=== PATIENT | female | born 1975 | race Caucasian/White ===

== ENCOUNTER 2019-07-12 14:00 | Outpatient (CLI) | payer BC, SELFPAY ==
--- NOTE | 2019-07-12 14:08 | MM_ITS ---
WS: [id number] BILATERAL DIGITAL SCREENING MAMMOGRAPHY WITH CAD CLINICAL INFORMATION: SCREENING HISTORY: Screening mammogram. No current complaints. COMPARISON: TECHNIQUE: Bilateral CC and MLO views. FINDINGS: The breasts are composed of heterogeneous fibroglandular density tissue, which can limit the detectio n of small underlying mass lesions. Increasing asymmetric density lower inner quadrant right breast. Recommend spot compression views and ultrasound if persistent. Left breast is unchanged in appearance. MM/[id number] IMPRESSION: BI-RADS: 0-Incomplete: Need additional imaging evaluation FOLLOW UP: Need Additional Imaging
== END 2019-07-12 14:01 | disposition home or self-care (01) ==
PROVIDERS: Family Provider Family Medicine; PCP Family Medicine; Visit Provider Family Medicine
DX: Z12.31 Encounter for screening mammogram for malignant neoplasm of breast (principal)
CPT/HCPCS: 77067

== ENCOUNTER 2019-07-24 11:20 | Outpatient (CLI) | payer BC, SELFPAY ==
--- NOTE | 2019-07-24 11:24 | US_ITS ---
WS: [id number] RIGHT DIGITAL MAMMOGRAPHY WITH CAD CLINICAL INFORMATION: RT BREAST DENSITY COMPARISON: July 12, 2019 TECHNIQUE: 4 views of the right breast were obtained. FINDINGS: The right breast is composed of heterogeneous fibroglandular density tissue, which can limit the dete ction of small underlying mass lesions. Again seen is the asymmetric density lower inner quadrant right breast measuring 10 mm. This is parti ally compresses out on the spot compression views. Ultrasound is pending. ULTRASOUND BREAST RIGHT TECHNIQUE: Ultrasound right breast focused area of concern. CLINICAL INFORMATION: RT BREAST DENSITY COMPARISON: None. FINDINGS: Ultrasound right breast 3-6 clock position. No evidence of pathologic mass or lesion. No lesions to t arget for biopsy. Normal underlying breast tissue. No suspicious findings. Mammographic findings like ly due to overlapping breast tissue. US/US breast RT limited* [id number] IMPRESSION: BI-RADS: 2-Benign FOLLOW UP: 1 Year Follow-up Recommend return to annual screening mammography.
== END 2019-07-24 11:21 | disposition home or self-care (01) ==
LOC: RADSHAW 11:20
PROVIDERS: Family Provider Family Medicine; PCP Family Medicine; Visit Provider Family Medicine
DX: N63.14 Unspecified lump in the right breast, lower inner quadrant (principal)
CPT/HCPCS: 76642; 77065

== ENCOUNTER 2020-03-17 09:35 | Outpatient (RCR) | payer OTHER, SELFPAY | END 2020-03-25 23:59 | disposition home or self-care (01) | LOC: SOT 09:35 | PROVIDERS: PCP Family Medicine; Referring Provider Physical Medicine & Rehabilitation; Visit Provider Physical Medicine & Rehabilitation | DX: G56.03 Carpal tunnel syndrome, bilateral upper limbs (principal) | CPT/HCPCS: 97035; 97110; 97140; 97166; L3807 ==

== ENCOUNTER 2020-03-26 06:00 | Outpatient (RCR) | payer OTHER, SELFPAY | END 2020-04-21 15:47 | disposition home or self-care (01) | LOC: SOT 06:00 | PROVIDERS: PCP Family Medicine; Referring Provider Physical Medicine & Rehabilitation; Visit Provider Physical Medicine & Rehabilitation | DX: G56.03 Carpal tunnel syndrome, bilateral upper limbs (principal) | CPT/HCPCS: 97035; 97110 ==

== ENCOUNTER 2020-08-20 15:06 | Outpatient (CLI) | payer BC, SELFPAY ==
--- NOTE | 2020-08-20 15:09 | MM_ITS ---
WS: [id number] BILATERAL DIGITAL SCREENING MAMMOGRAPHY WITH CAD CLINICAL INFORMATION: SCREENING HISTORY: Screening mammogram. No current complaints. COMPARISON: July 12, 2019 TECHNIQUE: Bilateral CC and MLO views. FINDINGS: The breasts are composed of heterogeneous fibroglandular density tissue, which can limit the detectio n of small underlying mass lesions. Stable slightly nodular breast tissue bilaterally. No suspicious mass, asymmetry, calcifications, or architectural distortion. No evidence of malignancy. MM/[id number] IMPRESSION: BI-RADS: 2-Benign FOLLOW UP: 1 Year Follow-up Recommend return to annual screening mammography.
== END 2020-08-20 15:07 | disposition home or self-care (01) ==
LOC: RADSHAW 15:08
PROVIDERS: PCP Family Medicine; Visit Provider Family Medicine
DX: Z12.31 Encounter for screening mammogram for malignant neoplasm of breast (principal)
CPT/HCPCS: 77067

== ENCOUNTER → 2020-10-28 16:01 | Outpatient (BNVA) | payer BC, SELFPAY | PROVIDERS: PCP Family Medicine; Visit Provider Urology | DX: N39.0 Urinary tract infection, site not specified (principal) | CPT/HCPCS: 81003 ==

== ENCOUNTER → 2021-02-10 14:31 | Outpatient (BNVA) | payer BC, SELFPAY | PROVIDERS: PCP Family Medicine; Referring Provider Family Medicine; Visit Provider Podiatrist Foot & Ankle Surgery | DX: M25.572 Pain in left ankle and joints of left foot (principal) | CPT/HCPCS: 73630 ==

== ENCOUNTER 2021-10-22 12:58 | Outpatient (CLI) | payer BC, SELFPAY ==
--- NOTE | 2021-10-22 13:08 | MM_ITS ---
WS: [id number] BILATERAL 3D TOMOSYNTHESIS DIGITAL SCREENING MAMMOGRAPHY WITH CAD CLINICAL INFORMATION: SCREENING HISTORY: Screening mammogram. No current complaints. COMPARISON: August 20, 2020 TECHNIQUE: Bilateral CC and MLO views. FINDINGS: Scattered fibroglandular densities bilaterally. No suspicious focal mass, asymmetry, calcifications, or architectural distortion. No evidence of malignancy. MM/[place] [id number] IMPRESSION: BI-RADS: 1-Negative FOLLOW UP: 1 Year Follow-up Recommend return to annual screening mammography.
== END 2021-10-22 12:59 | disposition home or self-care (01) ==
LOC: RADSHAW 13:04
PROVIDERS: PCP Family Medicine; Visit Provider Family Medicine
DX: Z12.31 Encounter for screening mammogram for malignant neoplasm of breast (principal)
CPT/HCPCS: 77063; 77067

== ENCOUNTER 2022-02-01 06:15 | Outpatient (CLI) | payer BC, SELFPAY ==
--- NOTE | 2022-02-01 06:30 | US_ITS ---
WS: [id number] RIGHT UPPER QUADRANT ULTRASOUND HISTORY: abdominal pain, focus on right upper quadrant COMPARISON: 02/20/2014 Liver: 12.7 cm in length. Normal size liver. No bile duct dilatation or mass. Hyperechoic nodule paolo uring 9 mm in the liver. Probably small hemangioma. This is just anterior to the dian hepatis. Portal Vein: Normal hepatopetal flow with monophasic waveform. Gallbladder: Well distended gallbladder. Sludge within the gallbladder. There may be some very small stones present also but there is no significant amount of shadowing. No pericholecystic fluid or gall bladder wall thickening. CBD: 0.2 cm Pancreas: Normal size and echogenicity. Right kidney: 11.0 cm in length. Normal size and echogenicity. No hydronephrosis or mass. Aorta and IVC: Unremarkable abdominal aorta and IVC. No ascites. US/US abdomen limited [id number] IMPRESSION: 1. Nonshadowing mobile sludge ball within the gallbladder. No evidence for acu te cholecystitis. 2. No bile duct dilatation. 3. Probable small hepatic hemangioma measuring 9 mm.
== END 2022-02-01 06:16 | disposition home or self-care (01) ==
LOC: RAD 06:17
PROVIDERS: PCP Family Medicine; Visit Provider Clinical Nurse Specialist Adult Health
DX: R10.9 Unspecified abdominal pain (principal)
CPT/HCPCS: 76705

== ENCOUNTER → 2022-04-05 09:02 | Outpatient (BNVA) | payer BC, SELFPAY | PROVIDERS: PCP Family Medicine; Visit Provider Family Medicine | DX: R10.9 Unspecified abdominal pain (principal); E03.9 Hypothyroidism, unspecified; R53.83 Other fatigue | CPT/HCPCS: 80053; 84436; 84443; 84481; 85025 ==

== ENCOUNTER 2022-06-30 07:38 | Outpatient (CLI) | payer BC, SELFPAY ==
--- NOTE | 2022-06-30 08:00 | NM_ITS ---
WS: [id number] NUCLEAR MEDICINE HIDA SCAN CLINICAL INFORMATION: ab. pain, RUQ TECHNIQUE: Following intravenous administration of 8.1 mCi of technetium 99m mebrofenin, images of th e abdomen were obtained over the course of 60 minutes. Next, gallbladder ejection fraction was determ ined by obtaining preprandial and one-hour postprandial images of the gallbladder following oral ermelinda stion of Ensure. COMPARISON: Ultrasound February 01, 2022 FINDINGS: Normal hepatic uptake at 5 minutes. Enlargement of the LEFT hepatic lobe unchanged. Normal hepatic ex cretion. Gallbladder is visualized by 15 minutes. Normal common bile duct and small bowel activity. N o evidence of acute cholecystitis. Gallbladder ejection fraction 91% within normal limits. No evidence of chronic cholecystitis. NM/NM hepatobiliary w phar* [id number] IMPRESSION: 1. No evidence of acute or chronic cholecystitis. 2. Gallbladder ejection fraction 91% within normal limits.
== END 2022-06-30 07:39 | disposition home or self-care (01) ==
LOC: RAD 07:39
PROVIDERS: PCP Family Medicine; Visit Provider Family Medicine
DX: R10.11 Right upper quadrant pain (principal)
CPT/HCPCS: 78227; A9537

== ENCOUNTER 2022-07-13 07:59 | Emergency (ER) | payer BC, SELFPAY ==
--- NOTE | 2022-07-13 08:01 | ED_ITS ---
HPI - Abdominal Pain General: Chief Complaint: Abdominal Pain Stated Complaint: abd pain Time Seen by Provider: 07/13/22 08:01 History of Present Illness: Ms. Yan is a 46-year-old lady presenting to the emergency department due to abdominal pain. She reports number of months now of more consistent episodic pain in the epigastric region however is currently still having pain and episode started this morning and is lasted longer than typical. Mild associated nausea. Denies with any of these events any specific known provoking factor. No alleviating factors. Has had prior evaluation of gallbladder without abnormality identified. She is on a PPI and has a history of GERD. No other specific changes in health, exacerbating, or alleviating factors identified. Onset (ago): hour(s) Pain Consistency: constant Location: Epigastric Severity: severe Quality: other (Twisting) Radiation: none Migration to: no migration Exacerbating factors: nothing Relieving factors: nothing Associated Symptoms: Reports nausea Review of Systems General: Reports: 10 or more systems reviewed and unremarkable except in HPI and below GI: Reports: nausea PFSH ED PFSH: Medical History Chronic UTI H/O drainage of abscess THROAT- ABSCESS EXCISED FROM THROAT Migraines Recurrent UTI Surgical History History of delivery History of hysterectomy Family History Father Crohn disease Social History Alcohol intake: never Marital status: Current occupational status: employed History of recent travel: No Physical Exam Const: COMMON NORMALS: alert GENERAL APPEARANCE: cooperative and well developed HENMT: COMMON NORMALS: normocephalic and atraumatic HEAD & SCALP: normocephalic and atraumatic Eye: COMMON NORMALS: conjunctivae normal CONJUNCTIVA: Yes conjunctivae normal SCLERA: sclerae normal Neck/C-Spine: COMMON NORMALS: supple GENERAL: Yes trachea midline Resp: COMMON NORMALS: normal respiratory effort EFFORT & INSPECTION: Yes able to speak in complete sentences Cardio: COMMON NORMALS: regular rate and regular rhythm RATE: regular rate RHYTHM: regular rhythm GI: COMMON NORMALS: Soft to palpation PALPATION: Yes Soft to palpation, Yes Tenderness to palpation present (GI) (Epigastric, mild), No Guarding due to palpation present (GI) and No Rigid due to palpation Extremity: GENERAL: Yes normal exam except as noted and No edema Neuro: COMMON NORMALS: moves all extremities SENSORIUM/ORIENTATION: Yes alert and No Orientation impaired Psych: COMMON NORMALS: mental status grossly normal and Normal thought process present THOUGHT PROCESS: Normal thought process present Course Vital Signs: Vital signs: Vital Signs Pulse Rate 71 07/13/22 10:11 Respiratory Rate 16 07/13/22 10:11 Blood Pressure 121/76 07/13/22 10:11 Pulse Oximetry 100 07/13/22 10:11 Oxygen Delivery Me thod 07/13/22 08:29 MDM - Abdominal Pain Medical Decision Making 46-year-old lady presenting with continued abdominal pain. Exam as above. There is no evidence of acute surgical abdomen. Labs similar to prior with no leukocytosis, normal hemoglobin, mild thrombocytosis. Metabolic panel without acute electrolyte derangement. Transaminitis is mildly worse. No evidence of urinary tract infection. Hepati tis panel is negative. Given prior evaluation which was reviewed and laboratory studies as well as physical exam CT imaging is warranted. CT imaging with no acute pathology, there is radiographic notes that this does not specifically correlate with patient's symptoms. During ED course patient treated with antiemetic and analgesia and felt improved upon reassessment. The exact cause of patient's symptoms is unclear, she has unspecified abdominal pain with transaminitis. The results of ED evaluation were discussed with the patient including prescriptions and/or symptomatic cares (if applicable) including appropriate and responsible use, followup plan, and return precautions. I recommended follow-up with gastroenterology given persistence of symptoms and transaminitis without clear etiology. The patient verbalized understanding and felt safe for discharge. Medical Records I reviewed the patient's medical records. Lab Data I reviewed the patient's lab results. 07/13/22 08:24 07/13/22 08:24 Labs/Radiology: Radiology Impressions Abdomen/Pelvis CT 07/13/22 08:26 IMPRESSION: 1. No acute abdominal or pelvic abnormalities. 2. There are small mesenteric and RIGHT lower quadrant lymph nodes. These can be seen with mesenteric adenitis. Lymph nodes are less than a centimeter. 3. Appendix is not identified. 4. No free fluid or free air. Laboratory Results WBC 6.5 10^3/uL (4.0-10.0) 07/13/22 08:24 RBC 4.54 10^6/uL (4.1-5.3) 07/13/22 08:24 Hgb 13.3 g/dL (11.5-15.3) 07/13/22 08:24 Hct 42.1 % (37.0-47.0) 07/13/22 08:24 MCV 92.7 fl (81-99) 07/13/22 08:24 MCH 29.3 pg (28.0-34.0) 07/13/22 08:24 MCHC 31.6 g/dL (30.0-36.0) 07/13/22 08: RDW 12.1 % (12.1-15.1) 07/13/22 08:24 Plt Count 466 10^3/cmm (130-400) H 07/13/22 08:24 MPV 9.5 fL (7.4-10.4) 07/13/22 08:24 Neut % (Auto) 53.9 % 07/13/22 08:24 Lymph % (Auto) 34.6 % 07/13/22 08:24 [place] % (Auto) 6.7 % 07/13/22 08:24 Eos % (Auto) 3.7 % 07/13/22 08:24 Baso % (Auto) 0.9 % 07/13/22 08:24 Neut # (Auto) 3.52 10^3/uL (1.8-7.7) 07/13/22 08:24 Lymph # (Auto) 2.3 10^3/uL (0.8-4.8) 07/13/22 08:24 [place] # (Auto) 0.4 10^3/uL (0.2-0.9) 07/13/22 08:24 Eos # (Auto) 0.2 10^3/uL (0.0-0.8) 07/13/22 08:24 Baso # (Auto) 0.1 10^3/uL (0.0-0.1) 07/13/22 08:24 Nucleated RBC % (auto) 0 % 07/13/22 08: Nucleated RBCs # 0.0 /100WBC 07/13/22 08:24 Sodium 142 mmol/L (136-145) 07/13/22 08:24 Potassium 3.9 mmol/L (3.5-5.1) 07/13/22 08:24 Chloride 104 mmol/L (98-107) 07/13/22 08:24 Carbon Dioxide 28 mmol/L (22-29) 07/13/22 08:24 Anion Gap 13.9 (5-19) 07/13/22 08:24 BUN 12 mg/dL (6-20) 07/13/22 08:24 Creatinine 0.6 mg/dL (0.5-0.9) 07/13/22 08:24 GFR Calculation 107.2 mL/min (90-130) 07/13/22 08:24 Glucose 100 mg/dL (65-115) 07/13/22 08:24 Calculated Osmolality 294 mOsm/kg (285-295) 07/13/22 08:24 Calcium 10.2 mg/dL (8.5-10.5) 07/13/22 08:24 Total Bilirubin 0.5 mg/dL (0.15-1.2) 07/13/22 08:24 AST 112 U/L (0-32) H 07/13/22 08:24 ALT 136 U/L (0-33) H 07/13/22 08:24 Alkaline Phosphatase 125 U/L (35-105) H 07/13/22 08:24 Total Protein 7.8 g/dL (6.6-8.7) 07/13/22 08:24 Albumin 4.7 g/dL (3.5-5.2) 07/13/22 08:24 Globulin 3.1 g/dL (1.3-4.6) 07/13/22 08:24 Lipase 45 U/L (13-60) 07/13/22 08:24 HCG, Qual Negative (Negative) 07/13/22 08:16 Urine Color Nellie (Yellow) 07/13/22 08:29 Urine Appearance Clear (CLEAR) 07/13/22 08:29 Urine pH 7 (5-7) 07/13/22 08:29 Ur Specific [place] 1.015 (1.005-1.030) 07/13/22 08:29 Urine Protein Neg (Negative) 07/13/22 08:29 Urine Glucose (UA) Norm (Normal) 07/13/22 08:29 Urine Ketones Negative (Negative) 07/13/22 08:29 Urine Blood Neg (Negative) 07/13/22 08:29 Urine Nitrate Negative (Negative) 07/13/22 08:29 Urine Bilirubin Neg (Negative) 07/13/22 08:29 Urine Urobilinogen Norm mg/dL (Negative) 07/13/22 08:29 Ur Leukocyte Esterase Negative (Negative) 07/13/22 08:29 Hepatitis A IgM Ab Non-reactive (Nonreactive) 07/13/22 08:24 Hep Bs Antigen Non-reactive (Nonreactive) 07/13/22 08:24 Hep B Core IgM Ab Non-reactive (Nonreactive) 07/13/22 08:24 Hepatitis C Antibody Non-reactive (Nonreactive) 07/13/22 08:24 Discharge Plan Discharge Patient Disposition: Home Clinical Impression: Abdominal pain, Transaminitis Condition: Stable Prescriptions: No Action conjugated estrogens 0.45 mg tablet 0.45 mg PO DAILY Rx Instructions: cyclically omeprazole 40 mg capsule,delayed release(DR/EC) 40 mg PO BID fluoxetine [Prozac] 10 mg capsule 10 mg PO DAILY levothyroxine [Synthroid] 88 mcg tablet 88 mcg PO Discharge Orders: Discharge ED (Routine); Ordered 07/13/22 Ordered By: Denny De Leon Referrals: Vinnie Guevara DO [Primary Care Provider] - Discharge Diet: Usual diet Discharge Activity: Increase activity as tolerated Patient Instructions: Abdominal Pain (ED) Activity Restrictions/Additional Instructions: Thank you for visiting the emergency department. You were seen and evaluated for abdominal pain. The exact cause of your abdominal pain is unclear as discussed. This does require further evaluation and I will message case management for assistance with follow-up. I recommend repeat endoscopy as well as follow-up with your primary care provider. Return to the emergency department for uncontrolled symptoms or anything else that you are concerned about and feel needs emergency department evaluation. Coding Level of Care Code ED Instrumentation And Control Technician for Radha Lyman Exam Comprehensive
[2022-07-13 08:06] VITALS: BMI 23.3
--- NOTE | 2022-07-13 08:26 | CT_ITS ---
WS: [id number] CT ABDOMEN AND PELVIS WITH CONTRAST HISTORY: epigastric pain, recurrent more constant this am TECHNIQUE: Imaging performed of the abdomen and pelvis with IV contrast. Single phase imaging of the abdomen. Coronal and sagittal reformats are submitted. All CT scans at [facility] use at [address] one of these dose optimization techniques: automated exposure control; mA and/or kV adjustment per patient size (includes targeted exams where dose is matched to clinical indication); or iterative re construction. IV CONTRAST: Omnipaque 350; 95 mL IV. Oral contrast: No DLP: 417.86 mGy.cm COMPARISON: 03/15/2014 Lower thorax: Lung bases are clear. Heart is normal size. No hiatal hernia. Liver/biliary system: Normal size with no intrahepatic dilatation. Gallbladder: Normal. No gallstones or wall thickening. No pericholecystic fluid. Pancreas: Normal size pancreas and pancreatic duct. No adjacent inflammation. Spleen: Normal size spleen. No mass or infarct. Adrenal glands: Normal. Right kidney: Normal. Left kidney: Normal size kidney. Too small to characterize hypodense nodule measuring 7 mm in the low er pole. Aorta: Normal. Lymphadenopathy: Small mesenteric and RIGHT lower quadrant lymph nodes. Largest lymph nodes measure a pproximately 1 cm. Free fluid: None. GI tract: Nondistended stomach. No small bowel obstruction. The appendix is not definitely identified . No GI tract obstruction. Abdominal wall: Unremarkable abdominal wall. No hernia. Pelvis: Prior hysterectomy. No free fluid. No adenopathy. Bones: 000 mild increase in the lumbar lordosis. CT/CT abdomen pelvis w con* [id number] IMPRESSION: 1. No acute abdominal or pelvic abnormalities. 2. There are small mesenteric and RIGHT lower quadrant lymph nodes. These can be seen with mesenteric adenitis. Lymph nodes are less than a centimeter. 3. Appendix is not identified. 4. No free fluid or free air.
[2022-07-13 08:29] VITALS: BP 140/89; PULSE 79; O2SAT 100
--- NOTE | 2022-07-13 08:36 | PC.NURSE ---
PT REFUSED FENTYNAL AND ZOFRAN. DR BOLAÑOS GAVE VERBAL ORDER TO HOLD MEDICATION INCASE PT REQUESTS IT
[2022-07-13 08:38] LABS: HCG Qualitative Urine. Negative (Negative)
[2022-07-13 08:38] LABS: Basophils # 0.1 10^3/uL (0.0-0.1); Basophils % 0.9 %; Eosinophils # 0.2 10^3/uL (0.0-0.8); Eosinophils % 3.7 %; Hematocrit 42.1 % (37.0-47.0); Hemoglobin 13.3 g/dL (11.5-15.3); Lymphocytes # 2.3 10^3/uL (0.8-4.8); Lymphocytes % 34.6 %; Mean Corpuscular HGB Conc 31.6 g/dL (30.0-36.0); Mean Corpuscular Hemoglobin 29.3 pg (28.0-34.0); Mean Corpuscular Volume 92.7 fl (81-99); Mean Platelet Volume 9.5 fL (7.4-10.4); Monocytes # 0.4 10^3/uL (0.2-0.9); Monocytes % 6.7 %; Neutrophils # 3.52 10^3/uL (1.8-7.7); Neutrophils % 53.9 %; Nucleated Red Blood Cells % 0 %; Platelet Count 466 10^3/cmm (130-400); Red Blood Count 4.54 10^6/uL (4.1-5.3); Red Cell Distribution Width 12.1 % (12.1-15.1); White Blood Count 6.5 10^3/uL (4.0-10.0)
[2022-07-13 08:39] LABS: Add Urine Microscopic? NO
[2022-07-13 08:45] LABS: Bilirubin Urine Neg (Negative); Blood Urine Neg (Negative); Glucose Urine UA Norm (Normal); Ketones Urine Negative (Negative); Leukocyte Esterase Urine Negative (Negative); Nitrate Urine Negative (Negative); Protein Urine Neg (Negative); Specific Gravity, Urine 1.015 (1.005-1.030); Urine Appearance Clear (CLEAR); Urine Color Amber (Yellow); Urobilinogen Urine Norm (Negative); pH Urine 7 (5-7)
[2022-07-13 08:47] LABS: Charge for UA Resulting for Rev
[2022-07-13 08:59] LABS: Alanine Aminotransferase 136 U/L (0-33); Albumin Level 4.7 g/dL (3.5-5.2); Alkaline Phosphatase 125 U/L (35-105); Anion Gap 13.9 (5-19); Aspartate Amino Transferase 112 U/L (0-32); Blood Urea Nitrogen 12 mg/dL (6-20); Calcium 10.2 mg/dL (8.5-10.5); Carbon Dioxide 28 mmol/L (22-29); Chloride 104 mmol/L (98-107); Globulin 3.1 g/dL (1.3-4.6); Glomerular Filtration Rate 107.2 mL/min (90-130); Glucose 100 mg/dL (65-115); Lipase 45 U/L (13-60); Osmolality Calculated 294 mOsm/kg (285-295); Potassium 3.9 mmol/L (3.5-5.1); Sodium 142 mmol/L (136-145); Total Bilirubin 0.5 mg/dL (0.15-1.2); Total Protein 7.8 g/dL (6.6-8.7)
[2022-07-13 09:13] VITALS: BP 119/75; PULSE 76; RESP 16; O2SAT 100
--- NOTE | 2022-07-13 09:13 | PC.NURSE ---
ALLERGY BAND APPLIED TO PT LEFT FA
[2022-07-13 10:11] VITALS: BP 121/76; PULSE 71; RESP 16; O2SAT 100
[2022-07-13 11:33] LABS: Hepatitis A Antibody IgM Non-Reactive (Nonreactive); Hepatitis B Core IgM Non-Reactive (Nonreactive); Hepatitis B Surface Antigen Non-Reactive (Nonreactive); Hepatitis C Virus Antibody Non-Reactive (Nonreactive)
--- NOTE | 2022-07-13 15:36 | DCPLANNER ---
Addendum entered by Mary Maciel 08/25/22 07:47: atient had a follow up appointment scheduled with general surgery - patient did attend appointment. Addendum entered by Mary Maciel 07/15/22 10:44: Patient has a follow up appointment scheduled for Friday July 29, 2022 at 8:[address] Pete at general surgery. Clinic will call patient with appointment information. Original Note: manager social work had message to schedule a follow up appointment for patient with general surgery. manager social work sent patients information to the front office staff at general surgery. Patients information will be printed and reviewed. Clinic will call patient with appointment information.
== END 2022-07-13 11:15 | disposition home or self-care (01) ==
PROVIDERS: Emergency Provider Emergency Medicine; PCP Family Medicine
DX: R10.9 Unspecified abdominal pain (principal); R74.01 Elevation of levels of liver transaminase levels; Z87.440 Personal history of urinary (tract) infections
CPT/HCPCS: 74177; 80053; 80074; 81003; 81025; 83690; 85025; 99285; Q9967

== ENCOUNTER 2022-08-02 00:13 | Emergency (ER) | payer BC, SELFPAY ==
[2022-08-02 00:26] VITALS: BP 143/77; PULSE 72; RESP 18; TEMP 36.4; O2SAT 99; BMI 23.6
--- NOTE | 2022-08-02 00:29 | ED_ITS ---
HPI - Abdominal Pain General: Chief Complaint: Abdominal Pain Stated Complaint: andrea arnold Time Seen by Provider: 08/02/22 00:14 Source: patient Mode of arrival: ambulatory Limitations: no limitations History of Present Illness: 46-year-old female who states has been having abdominal pain since August she has been seen has been seen by surgery and is scheduled to have her gallbladder out in 2 weeks. States that she is having increased pain in her right upper quadrant is a 9 out of 10 denies any fever has had nausea denies any vomiting denies any worsening proving factors. Associated Symptoms: Reports nausea; Denies chills, dysuria and fever(s) Review of Systems Const: Denies: fever(s), chills, body aches or change in appetite Eyes: Denies: blurry vision or eye discomfort ENMT: Denies: throat pain or dental pain Card: Denies: chest pain Resp: Denies: dyspnea GI: Reports: abdominal pain and nausea : Denies: dysuria Musc: Denies: neck pain or back pain Skin/Breast: Denies: rash Neuro: Denies: headache(s) Psych: Denies: depression Noé/Lymph: Denies: easy bruising All/Imm: Denies: urticaria PFSH ED PFSH: Medical History Chronic UTI H/O drainage of abscess THROAT- ABSCESS EXCISED FROM THROAT Migraines Recurrent UTI Surgical History History of delivery History of hysterectomy Family History Father Crohn disease Social History Alcohol intake: never Marital status: Current occupational status: employed History of recent travel: No Physical Exam Const: COMMON NORMALS: no acute distress, patient oriented x3 and healthy appearing HENMT: COMMON NORMALS: normocephalic and atraumatic HEAD & SCALP: normocephalic and atraumatic Eye: COMMON NORMALS: Equal, round and reactive pupils present and EOMs intact bilaterally PUPIL: Yes Equal, round and reactive pupils present Neck/C-Spine: COMMON NORMALS: full ROM and supple Chest: COMMONS NORMALS: normal inspection of the chest and normal palpation of entire chest wall Resp: COMMON NORMALS: normal respiratory effort, No retractions, No use of accessory muscles and clear to auscultation bilaterally AUSCULTATION: clear to auscultation bilaterally Cardio: COMMON NORMALS: regular rate, regular rhythm and No murmurs present (Cardio) RATE: regular rate RHYTHM: regular rhythm GI: COMMON NORMALS: Normal to inspection, nondistended, normoactive bowel s ounds present, Soft to palpation and no masses PALPATION: Yes Soft to pal pation and Yes Tenderness to palpation present (GI) Details: RUQ Extremity: COMMON NORMALS: normal to inspection and full ROM Neuro: COMMON NORMALS: patient oriented x3, moves all extremities and no focal motor deficits Psych: COMMON NORMALS: mental status grossly normal, Normal thought process present and cooperative THOUGHT PROCESS: Normal thought process present Skin: COMMON NORMALS: no rashes or lesions noted and no wounds GENERAL SKIN EXAM: no rashes or lesions noted Course Vital Signs: Vital signs: Vital Signs Temperature 97.6 F 08/02/22 00:26 Pulse Rate 69 08/02/22 01:30 Respiratory Rate 16 08/02/22 01:30 Blood Pressure 119/69 08/02/22 01:30 Pulse Oximetry 99 08/02/22 01:30 Oxygen Delivery Me thod 08/02/22 00:26 MDM - Abdominal Pain Medical Decision Making Patient presents here with abdominal pain as known biliary colic her pain is resolved here exam is benign she had recent imaging does not need another image at this time as she has normal white count she has surgery scheduled in 2 weeks she return if worsening. Lab Data 08/02/22 00:42 08/02/22 00:42 Labs/Radiology: Laboratory Results WBC 9.8 10^3/uL (4.0-10.0) 08/02/22 00:42 RBC 4.29 10^6/uL (4.1-5.3) 08/02/22 00:42 Hgb 12.4 g/dL (11.5-15.3) 08/02/22 00:42 Hct 39.5 % (37.0-47.0) 08/02/22 00:42 MCV 92.1 fl (81-99) 08/02/22 00:42 MCH 28.9 pg (28.0-34.0) 08/02/22 00:42 MCHC 31.4 g/dL (30.0-36.0) 08/02/22 00:42 RDW 12.2 % (12.1-15.1) 08/02/22 00:42 Plt Count 448 10^3/cmm (130-400) H 08/02/22 00:42 MPV 9.6 fL (7.4-10.4) 08/02/22 00:42 Neut % (Auto) 57.0 % 08/02/22 00:42 Lymph % (Auto) 32.6 % 08/02/22 00:42 [place] % (Auto) 7.7 % 08/02/22 00:42 Eos % (Auto) 1.9 % 08/02/22 00:42 Baso % (Auto) 0.6 % 08/02/22 00:42 Neut # (Auto) 5.58 10^3/uL (1.8-7.7) 08/02/22 00:42 Lymph # (Auto) 3.2 10^3/uL (0.8-4.8) 08/02/22 00:42 [place] # (Auto) 0.8 10^3/uL (0.2-0.9) 08/02/22 00:42 Eos # (Auto) 0.2 10^3/uL (0.0-0.8) 08/02/22 00:42 Baso # (Auto) 0.1 10^3/uL (0.0-0.1) 08/02/22 00:42 Nucleated RBC % (auto) 0 % 08/02/22 00:42 Nucleated RBCs # 0.0 /100WBC 08/02/22 00:42 Sodium 140 mmol/L (136-145) 08/02/22 00:42 Potassium 3.9 mmol/L (3.5-5.1) 08/02/22 00:42 Chloride 101 mmol/L (98-107) 08/02/22 00:42 Carbon Dioxide 29 mmol/L (22-29) 08/02/22 00:42 Anion Gap 13.9 (5-19) 08/02/22 00:42 BUN 14 mg/dL (6-20) 08/02/22 00:42 Creatinine 0.7 mg/dL (0.5-0.9) 08/02/22 00:42 GFR Calculation 89.7 mL/min (90-130) L 08/02/22 00:42 Glucose 110 mg/dL (65-115) 08/02/22 00:42 Calculated Osmolality 291 mOsm/kg (285-295) 08/02/22 00:42 Calcium 10.0 mg/dL (8.5-10.5) 08/02/22 00:42 Total Bilirubin 0.5 mg/dL (0.15-1.2) 08/02/22 00:42 AST 136 U/L (0-32) H 08/02/22 00:42 ALT 122 U/L (0-33) H 08/02/22 00:42 Alkaline Phosphatase 114 U/L (35-105) H 08/02/22 00:42 Total Protein 7.7 g/dL (6.6-8.7) 08/02/22 00:42 Albumin 4.6 g/dL (3.5-5.2) 08/02/22 00:42 Globulin 3.1 g/dL (1.3-4.6) 08/02/22 00:42 Lipase 53 U/L (13-60) 08/02/22 00:42 Urine Color Yellow (Yellow) 08/02/22 01:37 Urine Appearance Clear (CLEAR) 08/02/22 01:37 Urine pH 6 (5-7) 08/02/22 01:37 Ur Specific [place] 1.015 (1.005-1.030) 08/02/22 01:37 Urine Protein Neg (Negative) 08/02/22 01:37 Urine Glucose (UA) Norm (Normal) 08/02/22 01:37 Urine Ketones Negative (Negative) 08/02/22 01:37 Urine Blood Neg (Negative) 08/02/22 01:37 Urine Nitrate Negative (Negative) 08/02/22 01:37 Urine Bilirubin Neg (Negative) 08/02/22 01:37 Urine Urobilinogen Norm mg/dL (Negative) 08/02/22 01:37 Ur Leukocyte Esterase Negative (Negative) 08/02/22 01:37 Discharge Plan Discharge Patient Disposition: Home Clinical Impression: Abdominal pain Condition: Stable Prescriptions: New hydrocodone-acetaminophen 5-325 mg tablet 1 tab PO Q6H PRN (Reason: pain) Qty: 14 0RF ondansetron 4 mg tablet,disintegrating 4 mg PO Q6H PRN (Reason: nausea and vomiting) Qty: 14 0RF No Action conjugated estrogens 0.45 mg tablet 0.45 mg PO DAILY Rx Instructions: cyclically omeprazole 40 mg capsule,delayed release(DR/EC) 40 mg PO BID fluoxetine [Prozac] 10 mg capsule 10 mg PO DAILY levothyroxine 88 mcg tablet See Rx Instructions .ROUTE .COMPLEX Qty: 90 1RF Dose Instruction: TAKE 1 TABLET EVERY MORNING Rx Instructions: TAKE 1 TABLET EVERY MORNING Discharge Orders: Discharge ED (Routine); Ordered 08/02/22 Ordered By: Blayne Eisenberg Referrals: Vinnie Guevara, [Primary Care Provider] - Discharge Diet: Advance as tolerated Discharge Activity: Resume usual activity Patient Instructions: Abdominal Pain (ED) Coding Level of Care Code ED Secretarial Stenographer for Radha Lyman
[2022-08-02] MEDS: HYDROmorphone 1 mg/mL INJ 1 mL IVP (00:38)
[2022-08-02] MEDS: ondansetron 2 mg/ML SDV 2 mL 4 MG IVP ×2 (00:38→00:39)
[2022-08-02] MEDS: sodium chloride 0.9% 1,000 ML 999 ML IV (00:39)
[2022-08-02 00:46] LABS: Basophils # 0.1 10^3/uL (0.0-0.1); Basophils % 0.6 %; Eosinophils # 0.2 10^3/uL (0.0-0.8); Eosinophils % 1.9 %; Hematocrit 39.5 % (37.0-47.0); Hemoglobin 12.4 g/dL (11.5-15.3); Lymphocytes # 3.2 10^3/uL (0.8-4.8); Lymphocytes % 32.6 %; Mean Corpuscular HGB Conc 31.4 g/dL (30.0-36.0); Mean Corpuscular Hemoglobin 28.9 pg (28.0-34.0); Mean Corpuscular Volume 92.1 fl (81-99); Mean Platelet Volume 9.6 fL (7.4-10.4); Monocytes # 0.8 10^3/uL (0.2-0.9); Monocytes % 7.7 %; Neutrophils # 5.58 10^3/uL (1.8-7.7); Nucleated Red Blood Cells % 0 %; Platelet Count 448 10^3/cmm (130-400); Red Blood Count 4.29 10^6/uL (4.1-5.3); Red Cell Distribution Width 12.2 % (12.1-15.1); White Blood Count 9.8 10^3/uL (4.0-10.0)
[2022-08-02 01:22] LABS: Alanine Aminotransferase 122 U/L (0-33); Albumin Level 4.6 g/dL (3.5-5.2); Alkaline Phosphatase 114 U/L (35-105); Anion Gap 13.9 (5-19); Aspartate Amino Transferase 136 U/L (0-32); Blood Urea Nitrogen 14 mg/dL (6-20); Carbon Dioxide 29 mmol/L (22-29); Chloride 101 mmol/L (98-107); Globulin 3.1 g/dL (1.3-4.6); Glomerular Filtration Rate 89.7 mL/min (90-130); Glucose 110 mg/dL (65-115); Lipase 53 U/L (13-60); Osmolality Calculated 291 mOsm/kg (285-295); Potassium 3.9 mmol/L (3.5-5.1); Sodium 140 mmol/L (136-145); Total Bilirubin 0.5 mg/dL (0.15-1.2); Total Protein 7.7 g/dL (6.6-8.7)
[2022-08-02 01:30] VITALS: BP 119/69; PULSE 69; RESP 16; O2SAT 99
[2022-08-02 01:40] LABS: Add Urine Microscopic? NO; Charge for UA Resulting for Rev
[2022-08-02 01:42] LABS: Bilirubin Urine Neg (Negative); Blood Urine Neg (Negative); Glucose Urine UA Norm (Normal); Ketones Urine Negative (Negative); Leukocyte Esterase Urine Negative (Negative); Nitrate Urine Negative (Negative); Protein Urine Neg (Negative); Specific Gravity, Urine 1.015 (1.005-1.030); Urine Appearance Clear (CLEAR); Urine Color Yellow (Yellow); Urobilinogen Urine Norm (Negative); pH Urine 6 (5-7)
== END 2022-08-02 02:01 | disposition home or self-care (01) ==
PROVIDERS: Emergency Provider Emergency Medicine; PCP Family Medicine
DX: R10.11 Right upper quadrant pain (principal); Z87.440 Personal history of urinary (tract) infections
CPT/HCPCS: 80053; 81003; 83690; 85025; 96361; 96374; 96375; 96376; 99285; J1170; J2405; J7030

== ENCOUNTER 2022-08-22 08:00 | Day surgery (SDC) | payer BC, SELFPAY ==
[2022-08-19 11:05] VITALS: BMI 23.3
[2022-08-22] VITALS (11 sets, daily range): BP systolic 101–126; BP diastolic 51–82; PULSE 58–95; RESP 14–18; TEMP 36.1–37.2; O2SAT 95–100
--- NOTE | 2022-08-22 08:11 | W.PM.OPSUD ---
Surgery/Procedure H&P Update DATE OF PROCEDURE: August 22, 2022 DATE H&P PERFORMED: 07/29/22 H&P UPDATE INFORMATION: I have reviewed H&P completed within last 30 days, I have examined patient prior to procedure and No changes to prior documentation PLANNED PROCEDURE: Operation Date: 08/22/22 10:05 Proposed Procedures p lap [email or web address] [id number],k80.20(Not Applicable) - Amando Pete DO
[2022-08-22] MEDS: ondansetron 2 mg/ML SDV 2 mL 4 MG IVP (09:10)
[2022-08-22] MEDS: ceFAZolin 2,000 MG in sodium chloride 0.9% (plus) 50 ML 100 MG IV (09:18)
[2022-08-22] MEDS: sodium chloride 0.9% 1,000 ML 30 ML IV (09:26)
[2022-08-22] MEDS: scopolamine 1.5 Patch 1 PATCH TRANSDERMA (09:27)
[2022-08-22] MEDS: diphenhydrAMINE 50 mg/mL SDV 1mL 12.5 MG IVP (09:27)
--- NOTE | 2022-08-22 09:50 | P.OP_ITS ---
Operative Report Date of procedure: August 22, 2022 Pre-op diagnosis: Preop Diagnosis Symptomatic cholelithiasis Post-op diagnosis: same Procedure done: Laparoscopic cholecystectomy Specimens removed/disposition: Gallbladder Surgeon: Dr. Amando Pete DO Anesthesia: General Estimated blood loss (mL): 5 Complications: None apparent Brief History: Is a very pleasant 46-year-old female who presented to my office with abdominal pain was diagnosed with symptomatic cholelithiasis and biliary dyskinesia. Laparoscopic cholecystectomy was indicated. The risks and benefits were explained and documented. Procedure: Patient was wheeled into the operative room and placed on the OR table in a supine position. Abdomen was inspected prepped and draped in usual sterile fashion. Time-out was performed and all present were in agreement. A 15 blade scalp was used to make a stab incision in the left upper quadrant and intra- abdominal insufflation was achieved using a Veress needle. After localizing the tissue incisions were made and a 5 millimeter trocar was placed into the umbilicus as well as 2 in the right upper quadrant. A 12 millimeter trocar was placed in the epigastrium. Gallbladder was grasped and elevated. The triangle of Calot was carefully dissected using blunt dissection and electrocautery until the triangle of Calot clearly identified. The cystic duct was clipped prox imally and double clipped distally. The duct was then ligated proximally. The cystic artery was doubly clipped and ligated. The gallbladder was then removed from the liver bed using electrocautery. The gallbladder was removed from the abdomen using an Endo-Catch bag through the epigastric incision. The liver bed was inspected and no bleeding was seen. The abdomen was irrigated and suctioned. All ports removed. Skin was washed and dried. Incisions were closed with 4-0 Monocryl in a subcuticular interrupted fashion. Skin glue was applied. Patient tolerated the procedure well.
[2022-08-22] MEDS: lidocaine-epi 2% 20 mL INJ 6 ML INJECTION (09:55)
[2022-08-22] MEDS: HYDROcodone-acetaminophen 5-325 mg Tablet 1 TAB PO (11:16)
--- NOTE | 2022-08-22 13:07 | ANES.PREANE2 ---
Pre-Anesthetic Assessment Height/Weight: Height 1.68 m Weight 65.771 kg Temp Pulse Resp BP Pulse Ox O2 Del Method 98.1 F 70 16 117/78 97 08/22/22 12:00 08/22/22 12:00 08/22/22 12:00 08/22/22 12:00 08/22/22 12:00 08/22/22 12:00 Preop Diagnosis: Symptomatic cholelithiasis Operation Date: 08/22/22 10:05 Proposed Procedures p lap [email or web address] [id number],[id number](Not Applicable) - Amando Pete DO Familial anesthetic complications: none Was Beta Elvie taken within 24 hours: N/A Was Clonidine taken within 24 hours: N/A Last intake: Intake Last Liquid Date 08/21/22 Last Liquid Time 19:00 Last Solid Date 08/21/22 Last Solid Time 19:00 Social No alcohol and No tobacco Exam alert, oriented x 3, clear to auscultation bilaterally and regular rate & rhythm Airway Submandibular: within normal limits Cervical ROM: within normal limits Mallampati: Class II Dentition: full GI Gastroesophageal Reflux Disease Metabolic Thyroid Disease Neuropsych Anxiety and Depression Anesthetic Plan ASA status: 2 Anesthesia: General Medications/Allergies Home Medications Medication Instructions Recorded Confirmed Last Taken Type conjugated estrogens 0.45 mg tablet 0.45 mg PO DAILY 10/28/20 08/19/22 08/21/22 History fluoxetine 10 mg capsule (Prozac) 10 mg PO DAILY 10/28/20 08/19/22 08/21/22 History omeprazole 40 mg capsule,delayed 40 mg PO BID 10/28/20 08/19/22 08/21/22 History release ondansetron 4 mg disintegrating 4 mg PO Q6H PRN nausea and 08/02/22 08/19/22 08/19/22 Rx tablet vomiting #14 tabs levothyroxine 88 mcg tablet 88 mcg PO DAILY 08/19/22 08/19/22 08/21/22 History docusate sodium 100 mg capsule 100 mg PO BID #20 caps 08/22/22 Unknown Rx (Dulcolax Stool Softener (docusate)) hydrocodone 5 mg-acetaminophen 325 1 tab PO Q6H PRN pain #20 tabs 08/22/22 Unknown Rx mg tablet Allergies Allergy/AdvReac Type Severity Reaction Status Date / Time morphine Allergy Unknown Unknown Verified 07/29/22 08:40 sulfamethoxazole Allergy Unknown ALGY-Rash Verified 07/29/22 08:40 [From ] trimethoprim [From ] Allergy Unknown ALGY-Rash Verified 07/29/22 08:40 tape Allergy Mild Unknown Uncoded 07/29/22 08:40 Current Medications Generic Name Dose Route Start Last Admin Trade Name Freq PRN Reason Stop Dose Admin Sodium Chloride 1,000 mls @ 30 mls/hr 08/22/22 08:30 08/22/22 11:59 Sodium Chloride 0.9% IV 08/23/22 08:29 Infused .Q24H MAISHA Infusion Ondansetron HCl 4 mg 08/22/22 08:21 08/22/22 09:10 Ondansetron 2 Mg/Ml Sdv 2 Ml IVP 4 mg Q5M PRN Administration NAUSEA AND VOMITING PFSH Anesthesia Medical History Chronic UTI H/O drainage of abscess THROAT- ABSCESS EXCISED FROM THROAT Migraines Recurrent UTI Surgical History History of delivery History of hysterectomy Family History Father Crohn disease Social History Alcohol intake: never Marital status: Current occupational status: employed Data Anesthesia Cardiac Studies: No Data to Display
--- NOTE | 2022-08-22 15:33 | ANE.PACU2 ---
Inpatient post-anesthesia follow up: Airway intact: Yes Vital signs: Temperature 98.1 F Pulse Rate 70 Respiratory Rate 16 Blood Pressure 117/78 Pulse Oximetry 97 Oxygen Delivery Me thod Room Air Oxygen Flow Rate Fraction of Inspir ed Oxygen Hydration adequate: Yes Nausea and vomiting: No Pain level: 2 Mental status: Baseline
== END 2022-08-22 11:55 | disposition home or self-care (01) ==
PROVIDERS: PCP Family Medicine; Visit Provider Surgery
PROC: 0FT44ZZ Resection of Gallbladder, Percutaneous Endoscopic Approach (ICD-10-PCS; CPT 47562; principal; 2022-08-22 09:45)
DX: K80.10 Calculus of gallbladder with chronic cholecystitis without obstruction (principal); K21.9 Gastro-esophageal reflux disease without esophagitis; F41.9 Anxiety disorder, unspecified; F32.A Depression, unspecified
CPT/HCPCS: 47562; 88304; J0690; J1100; J1200; J1885; J2250; J2405; J2704; J3010; J7030

== ENCOUNTER → 2022-10-26 14:38 | Outpatient (BNVA) | payer BC, SELFPAY | PROVIDERS: PCP Family Medicine; Visit Provider Urology | DX: N39.0 Urinary tract infection, site not specified (principal) | CPT/HCPCS: 81003 ==

== ENCOUNTER 2022-11-16 15:35 | Outpatient (CLI) | payer BC, SELFPAY ==
--- NOTE | 2022-11-16 15:44 | MM_ITS ---
WS: [id number] BILATERAL 3D TOMOSYNTHESIS DIGITAL SCREENING MAMMOGRAPHY WITH CAD CLINICAL INFORMATION: SCREEN HISTORY: Screening mammogram. No current complaints. COMPARISON: 2021 TECHNIQUE: Bilateral CC and MLO views. FINDINGS: The breasts are composed of heterogeneous fibroglandular density tissue, which can limit the detectio n of small underlying mass lesions. No suspicious mass, asymmetry, calcifications, or architectural d istortion. No evidence of malignancy. Incidental punctate calcifications. MM/[id number] IMPRESSION: BI-RADS: 2-Benign FOLLOW UP: 1 Year Follow-up Recommend return to annual screening mammography.
== END 2022-11-16 15:36 | disposition home or self-care (01) ==
PROVIDERS: PCP Family Medicine; Visit Provider Family Medicine
DX: Z12.31 Encounter for screening mammogram for malignant neoplasm of breast (principal)
CPT/HCPCS: 77063; 77067

== ENCOUNTER → 2023-03-09 11:15 | Outpatient (BNVA) | payer BC, SELFPAY | PROVIDERS: PCP Family Medicine; Visit Provider Family Medicine | DX: E03.9 Hypothyroidism, unspecified (principal); Z00.00 Encounter for general adult medical examination without abnormal findings | CPT/HCPCS: 80053; 80061; 84443 ==

== ENCOUNTER → 2023-08-24 12:24 | Outpatient (BNVA) | payer BC, SELFPAY | PROVIDERS: PCP Family Medicine; Visit Provider Family Medicine | DX: R00.2 Palpitations (principal) | CPT/HCPCS: 80048; 83735; 84439; 84443; 84481; 85025 ==

== ENCOUNTER 2023-11-28 13:15 | Outpatient (CLI) | payer BC, SELFPAY ==
--- NOTE | 2023-11-28 13:30 | MM_ITS ---
WS: [id number] BILATERAL 3D TOMOSYNTHESIS DIGITAL SCREENING MAMMOGRAPHY WITH CAD CLINICAL INFORMATION: SCREENING HISTORY: Screening mammogram. No current complaints. COMPARISON: 2022 TECHNIQUE: Bilateral CC and MLO views. FINDINGS: The breasts are composed of heterogeneous fibroglandular density tissue, which can limit the detectio n of small underlying mass lesions. No suspicious mass, asymmetry, calcifications, or architectural d istortion. No evidence of malignancy. A few tiny incidental punctate calcifications. MM/[place] [id number] IMPRESSION: BI-RADS: 2-Benign FOLLOW UP: 1 Year Follow-up Recommend return to annual screening mammography.
== END 2023-11-28 13:16 | disposition home or self-care (01) ==
PROVIDERS: PCP Family Medicine; Visit Provider Registered Nurse
DX: Z12.31 Encounter for screening mammogram for malignant neoplasm of breast (principal); R92.323 Mammographic fibroglandular density, bilateral breasts; R92.333 Mammographic heterogeneous density, bilateral breasts
CPT/HCPCS: 77063; 77067

== ENCOUNTER → 2024-10-01 15:04 | Outpatient (BNVA) | payer BC, SELFPAY | PROVIDERS: PCP Family Medicine; Visit Provider Family Medicine | DX: Z00.00 Encounter for general adult medical examination without abnormal findings (principal) | CPT/HCPCS: 80053; 80061; 85025 ==

== ENCOUNTER → 2024-11-06 09:37 | Outpatient (BNVA) | payer BC, SELFPAY | PROVIDERS: PCP Family Medicine; Visit Provider Family Medicine | DX: E03.9 Hypothyroidism, unspecified (principal) | CPT/HCPCS: 84439; 84443; 84481 ==

== ENCOUNTER 2024-11-26 09:12 | Outpatient (CLI) | payer BC, SELFPAY ==
--- NOTE | 2024-11-26 09:30 | USR_ITS ---
PROCEDURE INFORMATION: Exam: US Bilateral Noninvasive Physiologic Study of the Lower Extremity Arteries, Limited Exam date and time: 11/26/2024 9:03 AM Age: 49 years old Clinical indication: Other: Cold, purplish feet. Comes and goes; Additional info: Cold purple feet TECHNIQUE: Imaging protocol: Bilateral Limited bilateral noninvasive physiologic studies of lower extremity arteries. Waveforms were obtained and evaluated. Images were documented and archived. Exam is limited. COMPARISON: CT abdomen pelvis w con* [id number] 07/13/2022 10:19 AM FINDINGS: Right Ankle-Brachial Index: 1.18 along the posterior tibial artery, 1.21 along the dorsalis pedis artery, and 0.79 along the digit. Left Ankle-Brachial Index: 1.20 along the posterior tibial artery, 1.24 along the dorsalis pedis artery, and 0.76 along the digit. US/CV ankle brachial index [id number] IMPRESSION: Bilateral ABIs within normal limits.
== END 2024-11-26 09:13 | disposition home or self-care (01) ==
PROVIDERS: PCP Family Medicine; Visit Provider Family Medicine
DX: L81.9 Disorder of pigmentation, unspecified (principal)
CPT/HCPCS: 93922

== ENCOUNTER 2025-04-24 15:20 | Outpatient (CLI) | payer BC, SELFPAY ==
--- NOTE | 2025-04-24 15:24 | MM_ITS ---
WS: [id number] BILATERAL SCREENING DIGITAL TOMOSYNTHESIS MAMMOGRAM WITH CAD HISTORY: SCREENING COMPARISON: 11/28/2023, 11/16/2022, 07/12/2019 Bilateral CC and MLO views with tomosynthesis and synthetic mammography submitted. Computer aided detection analyzed. Breast composition: The breasts are heterogeneously dense, which may obscure small masses. No suspicious masses, microcalcifications or architectural distortion. MM/MM scr tomosynthesis [id number] IMPRESSION: BI-RADS: 1 - Negative FOLLOW UP: 1 Year Follow-up
== END 2025-04-24 15:21 | disposition home or self-care (01) ==
LOC: RAD 15:21
PROVIDERS: PCP Family Medicine; Visit Provider Family Medicine
DX: Z12.31 Encounter for screening mammogram for malignant neoplasm of breast (principal); R92.333 Mammographic heterogeneous density, bilateral breasts
CPT/HCPCS: 77063; 77067